=== PATIENT | male | born 1980 | race Caucasian/White ===

== ENCOUNTER 2016-08-23 16:25 | Emergency (ER) | payer OTHER ==
[~2016-08-23] VITALS: Ht 162.6 cm; Wt 65.8 kg
[2016-08-23 16:34] VITALS: BP 130/71
== END 2016-08-23 17:25 | disposition home or self-care (01) ==
LOC: ER 16:31
DX: M54.6 Pain in thoracic spine (principal); G40.909 Epilepsy, unspecified, not intractable, without status epilepticus; V49.49XA Driver injured in collision with other motor vehicles in traffic accident, initial encounter; Y93.89 Activity, other specified; Y92.89 Other specified places as the place of occurrence of the external cause; Y99.9 Unspecified external cause status
CPT/HCPCS: 99283; A4606; Z7610

== ENCOUNTER 2017-12-23 22:39 | Emergency (ER) | payer MEDICAID ==
[~2017-12-23] VITALS: Ht 175.3 cm; Wt 68.9 kg
[2017-12-23 22:50] VITALS: BP 119/67
== END 2017-12-23 23:25 | disposition home or self-care (01) ==
LOC: ER 22:42
DX: Z76.0 Encounter for issue of repeat prescription (principal); R56.9 Unspecified convulsions
CPT/HCPCS: 99281; A4606; Z7610; Z7502